=== PATIENT | male | born 1990 | race Caucasian/White ===

== ENCOUNTER 2019-08-17 07:29 | Emergency (ER) | payer BC ==
[~2019-08-17] VITALS: Ht 177.8 cm; Wt 86.2 kg
[~2019-08-17 07:29] MED LIST: ALBUAER3 IN; FLUT250M9
[2019-08-17 08:42] VITALS: BP 132/78
[2019-08-17] MEDS ORDERED: ALBUTEROL SULF 2.5 MG/0.5ML(0.5%) NEB SOLN NEB ONE (09:15)
[2019-08-17] MEDS ORDERED: IPRATROPIUM BROM 0.5 MG/2.5ML INH SOL NEB ONE (09:15)
[2019-08-17] MEDS ORDERED: methylPREDNISolone SOD SUCC 125 MG/2 ML VL IM ONE (09:15)
== END 2019-08-17 10:07 | disposition home or self-care (01) ==
LOC: ER 07:29
DX: J45.909 Unspecified asthma, uncomplicated (principal)
CPT/HCPCS: 71046; 94640; 96372; 99283; J2930; J7611; J7644

== ENCOUNTER 2020-11-03 06:55 | Emergency (ER) | payer BC, OTHER ==
[~2020-11-03] VITALS: Ht 177.8 cm; Wt 88.0 kg
[2020-11-03 08:08] VITALS: BP 166/88
== END 2020-11-03 09:14 | disposition home or self-care (01) ==
LOC: ER 06:55
DX: S16.1XXA Strain of muscle, fascia and tendon at neck level, initial encounter (principal); M25.512 Pain in left shoulder; V49.9XXA Car occupant (driver) (passenger) injured in unspecified traffic accident, initial encounter; Y93.89 Activity, other specified; Y92.89 Other specified places as the place of occurrence of the external cause; Y99.8 Other external cause status
CPT/HCPCS: 72040; 72070; 73030